=== PATIENT | male | born 1985 | race Two or more races ===

== ENCOUNTER 2018-04-19 11:02 | Emergency (ER) | payer BC ==
[~2018-04-19] VITALS: Ht 172.7 cm; Wt 83.8 kg
[2018-04-19 11:04] VITALS: BP 149/90
== END 2018-04-19 12:11 | disposition home or self-care (01) ==
LOC: ED 12:05
DX: I10 Essential (primary) hypertension (principal)
CPT/HCPCS: 93005; 99283